=== PATIENT | female | born 1930 | race Caucasian/White ===

== ENCOUNTER 2017-01-03 20:12 | Inpatient (IN) | payer OTHER ==
[2017-01-03] MEDS ORDERED: DUONEB (A & A) INH ONE ×3 (20:48→22:18)
--- NOTE | 2017-01-03 20:49 | PROVIDER DOCUMENTATION ---
HPI-Respiratory General - General Source: patient, family - History of Present Illness-Resp Quality of Pain: reports: none Severity in ED: reports: severe Onset/Duration: reports: 3 days ago Timing: reports: still present Cough Quality/Degree: reports: severe, productive cough Episode Frequency: occasional episodes Associated Symptoms: reports: cough, fever/chills, lightheadedness, shortness of breath, short of breath, wheezing. denies: chest pain/soreness, dizziness, earache, facial pain, flu-like symptoms, headache, heart racing, hurts to breathe, hyperventilating, muscle/bodyaches, nasal congestion, sinus pain, sore throat, sweaty <Chucho Ko - Last Filed: 01/03/17 21:29> <Filomena Chung - Last Filed: 01/03/17 22:33> - General Chief Complaint: General Adult Stated Complaint: GENERAL, PASSING OUT Time Seen by Provider: 01/03/17 20:39 Allergies/Adverse Reactions: Patient Allergies Allergy/AdvReac Type Severity Reaction Status Date / Time Penicillins Allergy Mild RASH Verified 01/03/17 20:56 Home Medications: Home Medication List Medication Instructions Recorded Confirmed Last Taken Type Aspirin 81 mg PO DAILY 09/20/12 01/03/17 01/03/17 History Calcium Carb/Vit D3/Minerals 1 each PO DAILY 09/20/12 01/03/17 01/03/17 History [Calcium 600+Minerals Tablet] Furosemide 40 mg PO DAILY 09/20/12 01/03/17 01/03/17 History Levothyroxine Sodium [Levothroid] 50 mcg PO DAILY 09/20/12 01/03/17 01/03/17 History Losartan [Cozaar] 50 mg PO BID 09/20/12 01/03/17 01/03/17 History Multivitamin W/Iron, Minerals 1 each PO DAILY 09/20/12 01/03/17 01/03/17 History [Complete Multivitamin] SIMVAstatin [Zocor] 40 mg PO DAILY 09/20/12 01/03/17 01/03/17 History Docusate Sodium 100 mg PO QHS 06/04/13 01/03/17 01/02/17 History Cetirizine HCl [Allergy Relief] 10 mg PO DAILY PRN 08/14/14 01/03/17 01/03/17 History Warfarin Sodium [Coumadin] 2.5 mg PO EVERY OTHER DAY 10/24/14 01/03/17 01/02/17 History Warfarin [Coumadin] 5 mg PO EVERY OTHER DAY 10/24/14 01/03/17 12/31/16 History Albuterol 2.5MG/Ipratrop 0.5MG 3 ml INH BID 01/03/17 01/03/17 01/03/17 History [Duoneb] Budesonide/Formoterol Fumarate 2 puff IH BID 01/03/17 01/03/17 01/03/17 History [Symbicort 160-4.5 Mcg Inhaler] Citalopram [Celexa] 20 mg PO DAILY 01/03/17 01/03/17 01/03/17 History Donepezil [Aricept] 10 mg PO DAILY 01/03/17 01/03/17 01/03/17 History Ferrous Sulfate [Iron] 65 mg PO DAILY 01/03/17 01/03/17 01/03/17 History Memantine HCl [Namenda Xr] 28 mg PO DAILY 01/03/17 01/03/17 01/03/17 History Montelukast Sodium [Singulair] 10 mg PO DAILY 01/03/17 01/03/17 01/03/17 History Quetiapine Fumarate [Seroquel] 25 mg PO HS 01/03/17 01/03/17 01/02/17 History Spironolactone [Aldactone] 25 mg PO BID 01/03/17 01/03/17 01/03/17 History Temazepam [Restoril] 15 mg PO QHS 01/03/17 01/03/17 01/02/17 History - History of Present Illness-Resp Nature of Presenting Problem: Pt is a 86 yof who presents to ER with CC of sob and respiratory distress. Pt's family reports that pt has hx of pna x3 years ago. Pt presents today with worsening sob since Tuesday, since being started on levaquin. Pt has developed cough, wheeze, fever (101). On exam, pt has poor inspiratory breathing patterns but has no pitting edema. Pt has hx of CHF. (Chucho Ko) Review of Systems - Adult - REVIEW OF SYSTEMS - ADULT Constitutional: reports: fever, fatique. denies: chills, night sweats Eyes: reports: no symptoms reported Ears, Nose, Mouth & Throat: reports: no symptoms reported Cardiovascular: denies: chest pain, edema, heart murmur, irregular heart rate, orthopnea, palpitations, poor circulation, PND, syncope Respiratory: reports: chronic cough, cough, dyspnea on exertion, excessive sputum production, shortness of breath, wheezing. denies: hemoptysis, pleurisy Gastrointestinal: reports: no symptoms reported Genitourinary: reports: no symptoms reported Musculoskeletal: reports: frequent leg cramps. denies: bone pain, back pain, joint pain, joint swelling, muscle aches, muscle weakness, neck pain Integumentary: denies: hives, hair loss, itching, mole changes, nail changes, rash, skin sores/ulcer, skin thickening Neurological: reports: no symptoms reported Psychiatric: reports: no symptoms reported Endocrine: reports: no symptoms reported Hematologic/Lymphatic: reports: no symptoms reported Allergic/Immunologic: reports: no symptoms reported All Other Systems: Reviewed and Negative <Chucho Ko - Last Filed: 01/03/17 21:29> Past History - Adult - PAST MEDICAL HISTORY-ADULT Review of Records: reports: Nursing Assessment Review, Medications Reviewed Cardiovascular: reports: A-Fib, CAD (PVD), CHF, HTN, hyperlipidemia Respiratory: reports: asthma, COPD (3L of oxygen at home), pneumonia Gastrointestinal: reports: GERD, other (constipation) Endocrine/Immune: reports: thyroid disorder (hypo), other (peripheral vascular disease) - PRIOR SURGERIES/PROCEDURES Surgical/Procedure History: reports: appendectomy, cardiac stent, pacemaker, hysterectomy, other (right leg graft; ablation; balloon angioplasty) - PRIOR HOSPITALIZATIONS Prior Hospitalizations: reports: for similar symptoms - IMMUNIZATION STATUS Childhood Immunizations: See Nurse Assessment Flu Vaccine: See Nurse Assessment <Chucho Ko - Last Filed: 01/03/17 21:29> Physical Exam-General - PHYSICAL EXAM-ADULT Initial Vital Signs Reviewed: Yes - CONSTITUTIONAL General Appearance: appears well, alert, moderate distress, lethargic, slow to respond. negative: no apparent distress, mild distress, severe distress, cachetic, obese, thin, anxious, obtunded, combative - RESPIRATORY Respiratory: chest non-tender, respiratory distress, decreased breath sounds, accessory muscle use, wheezing (inspiratory). negative: lungs clear, normal breath sounds - CARDIOVASCULAR Cardiovascular: normal peripheral pulses, regular rate, rhythm. negative: bradycardia, tachycardia, irregularly irregular - MUSCULOSKELETAL Extremity: normal range of motion, non-tender, normal gait, tenderness. negative: deformity, erythema, inflammation, pulse deficit, pedal edema, slow capillary refill, swelling - SKIN Integumentary: normal color, normal turgor, warm/dry, tenderness, warm. negative: diaphoresis, laceration(s), swelling - NEUROLOGIC Neurologic: grossly normal, no motor/sensory deficits. negative: facial droop, focal weakness, motor weakness, sensory deficit - PSYCHIATRIC Psych/Mental Status: normal thought content, normal thought process, oriented x 3, depressed affect <Chucho Ko - Last Filed: 01/03/17 21:29> Progress - XRAY 1 XRAY: Bilateral XRAY Study: Chest Impression: See EMR Report XRAY Interpretation: COPD changes <Chucho Ko - Last Filed: 01/03/17 21:29> - CONSULTS/PCP/HOSPITALIST Notification #1 *Consult/PCP/Hospitalist*: Dr. Tai, hospitalist Time Discussed: 22:32 Reason/Comments: COPD exacerbatopm Consult Disposition: Admit <Filomena Chung - Last Filed: 01/03/17 22:33> - PLAN OF CARE/RESULTS Progress/Plan/Lab Results: Vital Signs Temp Pulse Resp BP Pulse Ox 01/03/17 21:32 88 25 H 99 01/03/17 20:15 97.3 F L 73 20 142/42 89 L Penicillins Allergy (Mild, Verified 01/03/17 20:56) RASH Aspirin 81 mg PO DAILY 09/20/12 Calcium Carb/Vit D3/Minerals [Calcium 600+Minerals Tablet] 1 each PO DAILY 09/20 Furosemide 40 mg PO DAILY 09/20/12 Levothyroxine Sodium [Levothroid] 50 mcg PO DAILY 09/20/12 Losartan [Cozaar] 50 mg PO BID 09/20/12 Multivitamin W/Iron, Minerals [Complete Multivitamin] 1 each PO DAILY 09/20/12 SIMVAstatin [Zocor] 40 mg PO DAILY 09/20/12 Docusate Sodium 100 mg PO QHS 06/04/13 Cetirizine HCl [Allergy Relief] 10 mg PO DAILY PRN 08/14/14 Warfarin Sodium [Coumadin] 2.5 mg PO EVERY OTHER DAY 10/24/14 Warfarin [Coumadin] 5 mg PO EVERY OTHER DAY 10/24/14 Albuterol 2.5MG/Ipratrop 0.5MG [Duoneb] 3 ml INH BID 01/03/17 Budesonide/Formoterol Fumarate [Symbicort 160-4.5 Mcg Inhaler] 2 puff IH BID Citalopram [Celexa] 20 mg PO DAILY 01/03/17 Donepezil [Aricept] 10 mg PO DAILY 01/03/17 Ferrous Sulfate [Iron] 65 mg PO DAILY 01/03/17 Memantine HCl [Namenda Xr] 28 mg PO DAILY 01/03/17 Montelukast Sodium [Singulair] 10 mg PO DAILY 01/03/17 Quetiapine Fumarate [Seroquel] 25 mg PO HS 01/03/17 Spironolactone [Aldactone] 25 mg PO BID 01/03/17 Temazepam [Restoril] 15 mg PO QHS 01/03/17 Laboratory 01/03/17 01/03/17 01/03/17 21:40 21:40 21:40 WBC RBC Hgb Hct MCV MCH MCHC RDW Std Deviation Plt Count MPV Immature Gran % (Auto) Neut % (Auto) Lymph % (Auto) Fajardo % (Auto) Eos % (Auto) Baso % (Auto) Immature Gran # (Auto) Neut # (Auto) Lymph # (Auto) F[place]ardo # (Auto) Eos # (Auto) Baso # (Auto) D-Dimer 0.44 Specimen Type Sample Site pH pCO2 pO2 HCO3 Base Excess Oxyhemoglobin ABG O2 Sat (Calculated) ABG O2 Saturation ABG Carboxyhemoglobin ABG Methemoglobin Donte Test A-a O2 Difference Total Hemoglobin Lactate Liter Flow Blood Gas Modality FiO2 % Sodium 133 L Potassium 4.5 Chloride 92 L Carbon Dioxide 27 Anion Gap 14 BUN 16 Creatinine 0.7 Estimated GFR/1.73 m2 > 60 BUN/Creatinine Ratio 23 Glucose 156 H Calculated Osmolality 271 Calcium 9.2 Total Bilirubin 0.23 AST 38 H ALT 28 Alkaline Phosphatase 50 Gur-C-Lzeymojwhzk Pept 2881 H Total Protein 6.6 Albumin 3.8 Globulin 2.8 Albumin/Globulin Ratio 1.4 01/03/17 01/03/17 21:40 20:47 WBC 9.32 RBC 3.80 L Hgb 11.3 L Hct 34.8 L MCV 91.6 MCH 29.7 MCHC 32.5 L RDW Std Deviation 12.9 Plt Count 166 MPV 10.3 Immature Gran % (Auto) 0.4 Neut % (Auto) 90.3 H Lymph % (Auto) 4.1 L Fajardo % (Auto) 5.0 Eos % (Auto) 0.1 Baso % (Auto) 0.1 Immature Gran # (Auto) 0.04 Neut # (Auto) 8.41 H Lymph # (Auto) 0.38 L Fajardo # (Auto) 0.47 Eos # (Auto) 0.01 Baso # (Auto) 0.01 D-Dimer Specimen Type ARTERIAL Sample Site R RADIAL pH 7.32 L pCO2 60 H* pO2 176 H HCO3 27.7 H Base Excess 3.5 H Oxyhemoglobin 96.8 ABG O2 Sat (Calculated) 15.6 ABG O2 Saturation 99.0 ABG Carboxyhemoglobin 0.90 ABG Methemoglobin 1.2 Donte Test YES A-a O2 Difference 6.0 Total Hemoglobin 11.2 L Lactate 1.00 Liter Flow 4.0 Blood Gas Modality CANNULA FiO2 % 36.0 Sodium Potassium Chloride Carbon Dioxide Anion Gap BUN Creatinine Estimated GFR/1.73 m2 BUN/Creatinine Ratio Glucose Calculated Osmolality Calcium Total Bilirubin AST ALT Alkaline Phosphatase Bjw-D-Naxjgswbbqu Pept Total Protein Albumin Globulin Albumin/Globulin Ratio Orders Category Date Time Status Saline Loc NOW Care 01/03/17 20:47 Active CHEST-PORTABLE [RAD] Stat Exams 01/03/17 20:48 Taken ABG [RESP] Routine Lab 01/03/17 20:47 Completed BNP [PRO B-NATRIURETIC PEPTIDE] Stat Lab 01/03/17 21:40 Completed CBC WITH ELECTRONIC DIFF [HEME] Stat Lab 01/03/17 21:40 Completed COMPREHENSIVE METABOLIC PANEL [CHEM] Stat Lab 01/03/17 21:40 Completed D-DIMER [CHEM] Stat Lab 01/03/17 21:40 Completed Albuterol 2.5MG/Ipratrop 0.5MG [Duoneb (A & A)] Med 01/03/17 20:48 Discontinued 3 ml INH NOW ONE Albuterol 2.5MG/Ipratrop 0.5MG [Duoneb (A & A)] Med 01/03/17 20:48 Discontinued 3 ml INH NOW ONE Albuterol 2.5MG/Ipratrop 0.5MG [Duoneb (A & A)] Med 01/03/17 22:18 Discontinued 3 ml INH NOW ONE Methylprednisolone Sod Succ [Solu-Medrol] Med 01/03/17 21:22 Discontinued 80 mg IV NOW ONE Aerosol Treatments Routine Ot 01/03/17 20:48 Completed Aerosol Treatments Routine Ot 01/03/17 20:48 Completed Aerosol Treatments Routine Ot 01/03/17 22:18 Active Aerosol Treatments Stat Ot 01/03/17 20:48 Completed Aerosol Treatments Stat Ot 01/03/17 20:48 Completed Aerosol Treatments Stat Ot 01/03/17 22:18 Active (Filomena Chung) Departure <Chucho Ko - Last Filed: 01/03/17 21:29> - Departure Time of Disposition Order: 22:29 Certified Medical Emergency: Emergent <Filomena Chung - Last Filed: 01/03/17 22:33> - Departure DIAGNOSIS: COPD exacerbation Disposition: ADMITTED INPATIENT 09 Condition: Stable Referrals: Nick Koroma MD [Primary Care Provider] - Attestation - Scribe Verification/Attestation Scribe:: Chucho Ko Acting as Scribe for:: Filomena Chung Scribe documention review:: This chart was documented by a scribe and accurately reflects the service the provider performed and the decisions made by the provider. <Chucho Ko - Last Filed: 01/03/17 21:29> - Physician/ CHET Attestation Patient care was provided by Advanced Practice Provider:: Yes Advanced Practice Provider:: Filomena Chung Advanced Practice Provider documentation review:: The Mid-level provider documentation, treatment plan and medical decision making was reviewed by the physician who agrees with all treatment and medical decision making by the MLP. <Filomena Chung - Last Filed: 01/03/17 22:33> Physician Attestation
[2017-01-03 21:14] LABS: ALLEN TEST YES; BE 3.5 mmoll (-3.0-3.0); BLOOD TYPE ARTERIAL; DRAW SITE R RADIAL; METHB 1.2 % (0.0-1.5); O2(CT) 15.6 mL/dL (15.0-23.0); PO2(98.6) 176 mmHg (60-100); SAMPLE BLOOD; THB 11.2 g/dL (11.5-17.4); pH(98.6) 7.32 (7.35-7.45)
[2017-01-03 21:15] LABS: MODALITY CANNULA
[2017-01-03 21:16] LABS: PCO2(98.6) 60 mmHg (35-45)
[2017-01-03] MEDS ORDERED: SOLU-MEDROL IV ONE (21:22)
[2017-01-03 21:54] LABS: BASO% 0.1 % (0.0-0.8); EOS# 0.01 X1000 (0.0-0.7); EOS% 0.1 % (0.0-10.0); HEMATOCRIT 34.8 % (37.0-47.0); HEMOGLOBIN 11.3 g/dL (12.0-16.0); IMM GRAN# 0.04 X1000 (0.0-0.04); IMM GRAN% 0.4 % (0.0-0.5); LYMPH# 0.38 X1000 (1.2-3.4); LYMPH% 4.1 % (20.5-51.1); MANUAL DIFF NEEDED? NO; MCH 29.7 PG (27-31); MCHC 32.5 g/dL (33-37); MCV 91.6 FL (81-99); MONO# 0.47 X1000 (0.11-0.59); MPV 10.3 FL (7.4-10.4); NEUT% 90.3 % (42.2-75.2); PLT 166 X1000 (130-400)
[2017-01-03 22:23] LABS: AGAP 14; ALBUMIN 3.8 g/dL (3.5-5.0); ALKALINE PHOSPHATASE 50 U/L (32-104); BUN 16 mg/dL (8-22); CALCIUM 9.2 mg/dL (8.8-10.2); CHLORIDE 92 mmol/L (98-107); COSMO 271; GOT 38 U/L (10-30); GPT 28 U/L (10-36); POTASSIUM 4.5 mmol/L (3.5-5.1); SODIUM 133 mmol/L (136-145); TCO2 27 mmol/L (25-35); TOTAL BILIRUBIN 0.23 mg/dL (0.20-1.00); TOTAL PROTEIN 6.6 g/dL (6.3-8.3)
[2017-01-03 23:36] LABS: INR 2.12
[2017-01-03 23:39] LABS: PROTIME 22.6 Seconds (9.2-11.7)
[2017-01-04] MEDS: SOLU-MEDROL IV SCH ×4 (03:26→22:15)
[2017-01-04] MEDS: LEVAQUIN 750 MG/D5W 150 ML IV SCH (03:27)
--- NOTE | 2017-01-04 05:05 | HISTORY AND PHYSICAL ---
CHIEF COMPLAINT: Shortness of breath. HISTORY OF PRESENTING ILLNESS: An 86-year-old female with a history of COPD, CHF, and hypertension on home oxygen. Had presented to the emergency department with a four-day history of worsening shortness of breath. Family members state that they tried to raise the oxygen. However, she still was getting more short of breath and subsequently, the patient was brought to the emergency department. In the ER, she was evaluated. She was somewhat hypoxic and due to her presenting symptoms, it was thought that she would need hospitalization for further management. At the time of my examination, she had denied any headache, fever, chills, chest pain, hemoptysis, melena, but complained of shortness of breath. PAST MEDICAL HISTORY: Includes COPD, CHF, hypertension, hyperlipidemia, atrial fibrillation. PAST SURGICAL HISTORY: Pacemaker, femorofemoral bypass, hysterectomy. ALLERGIES: Penicillin. CURRENT MEDICATIONS: As listed in the MAR. SOCIAL HISTORY: She is a former smoker. No history of alcohol or illicit drug use. FAMILY HISTORY: Positive for coronary artery disease in father. REVIEW OF SYSTEMS: Twelve point review of systems listed as in the HPI. Other systems negative. PHYSICAL EXAMINATION: GENERAL: Cooperative, friendly female. She is in some mild to moderate respiratory distress. VITAL SIGNS: Temperature 97.3 degrees, pulse 73, respirations 20, blood pressure 142/42, is saturating 89% on 4 L. HEENT: Atraumatic, normocephalic. Extraocular movements intact. PERRLA. NECK: No masses. CHEST: Some rhonchi. CARDIOVASCULAR: Regular rate and rhythm. ABDOMEN: Soft. Positive bowel sounds. EXTREMITIES: There is +1 edema. NEUROLOGIC: She is awake, alert, oriented x3. : No bladder distention. SKIN: Warm. LABORATORIES AND STUDIES: ABG shows a pH of 7.32 and pCO2 of 60. WBCs 9.32, hemoglobin 11.3, hematocrit 34.8, platelets are 166,000. Sodium 133, potassium 4.5, chloride 92, CO2 is 27, BUN is 16, creatinine 0.7, glucose is 156. ProBNP is 2881. ASSESSMENT: An 86-year-old, elderly female with a history of chronic obstructive pulmonary disease, congestive heart failure, and hypertension, on home oxygen. Had presented to the emergency department with worsening shortness of breath. She was given DuoNebs and intravenous Solu-Medrol, and she had some mild improvement. However, the patient will need hospitalization for further management. 1. Acute chronic obstructive pulmonary disease exacerbation. 2. Chronic congestive heart failure, unspecified. 3. Hypertension. 4. Atrial fibrillation. PLAN: 1. We will admit patient to the medical floor with telemetry. 2. We will continue with DuoNebs and IV Solu-Medrol. 3. If she has worsening symptoms, we may need to put patient on BiPAP. 4. Continue with gentle diuresis. 5. Monitor blood pressure closely. 6. We will restart her anticoagulation for her atrial fibrillation. 7. Put the patient on DVT prophylaxis with SCD as the fact that she is already on Coumadin. 8. We will continue to follow and reassess.
[2017-01-04 06:24] LABS: AGAP 12; BUN 17 mg/dL (8-22); CALCIUM 9.1 mg/dL (8.8-10.2); CHLORIDE 93 mmol/L (98-107); COSMO 276; POTASSIUM 4.5 mmol/L (3.5-5.1); SODIUM 134 mmol/L (136-145); TCO2 29 mmol/L (25-35)
[2017-01-04 06:53] LABS: BASO% 0.1 % (0.0-0.8); HEMATOCRIT 33.4 % (37.0-47.0); HEMOGLOBIN 10.7 g/dL (12.0-16.0); LYMPH# 0.25 X1000 (1.2-3.4); LYMPH% 3.3 % (20.5-51.1); MANUAL DIFF NEEDED? YES; MCH 29.5 PG (27-31); MONO# 0.19 X1000 (0.11-0.59); MONO% 2.5 % (1.7-9.3); MPV 10.6 FL (7.4-10.4); NEUT% 94.1 % (42.2-75.2); PLT 161 X1000 (130-400); RBC 3.63 XMIL (4.2-5.4)
[2017-01-04] MEDS: SYNTHROID PO SCH (07:55)
--- NOTE | 2017-01-04 07:59 | Diag Imaging Result Document ---
PROCEDURE NAME: CHEST-PORTABLE - 01/03/2017 PORTABLE CHEST X-RAY: COMPARISON: 04/12/2016. FINDINGS: Stable dual-chamber pacemaker. Stable streaky scarring in the left lung base. No new or focal infiltrates. There is mild pulmonary vascular congestion. Heart size remains normal. IMPRESSION: No acute disease or significant change from prior.
[2017-01-04 08:17] LABS: BANDS 4 % (0-1); LYMPHS 4 % (21-51); MONO 6 % (1-9)
[2017-01-04] MEDS: FLINTSTONES COMPLETE PO SCH (08:34)
[2017-01-04] MEDS: COZAAR PO SCH ×2 (08:35→20:58)
[2017-01-04] MEDS: ASPIRIN PO SCH (08:35)
[2017-01-04] MEDS: ARICEPT PO SCH (08:35)
[2017-01-04] MEDS: ALDACTONE PO SCH ×2 (08:35→20:58)
[2017-01-04] MEDS: FERROUS SULFATE PO SCH (08:35)
[2017-01-04] MEDS: LASIX PO SCH (08:36)
[2017-01-04] MEDS: ZOCOR PO SCH (08:36)
[2017-01-04] MEDS: NAMENDA XR PO SCH (08:36)
[2017-01-04] MEDS: CALTRATE 600 + D PO SCH (08:36)
[2017-01-04] MEDS: CELEXA PO SCH (08:36)
[2017-01-04] MEDS: SINGULAIR PO SCH (08:38)
[2017-01-04] MEDS ORDERED: MINERALS PO SCH (09:00)
[2017-01-04] MEDS ORDERED: FERROUS SULFATE 65 MG PO SCH (09:00)
[2017-01-04] MEDS ORDERED: VIT D3 PO SCH (09:00)
[2017-01-04] MEDS ORDERED: CENTRUM CHEWABLE PO SCH (09:00)
[2017-01-04] MEDS ORDERED: CALCIUM CARB PO SCH (09:00)
--- NOTE | 2017-01-04 10:20 | PROGRESS NOTE ---
DATE: 01/04/2017 SUBJECTIVE: Ms. Thompson was admitted yesterday per Dr. Twan Tai. This is an 86-year-old with history of COPD, congestive heart failure, hypertension, home oxygen, who presented to the emergency room with a 4-day history of worsening shortness of breath. Family member states she has tried to raise the oxygen, however still is getting more short of breath. Subsequently the patient was brought to the emergency room; here she was evaluated, found to have hypoxia and noted very weak and lethargic and wearing out from work of breathing. PAST MEDICAL HISTORY: COPD, congestive heart failure, hypertension, hyperlipidemia, atrial fibrillation. SURGICAL HISTORY: Had a pacemaker femoral-femoral bypass and hysterectomy, so was admitted with acute on chronic obstructive pulmonary disease or exacerbation of COPD. She has a history of chronic congestive heart failure, hypertension atrial fib. IMAGING: Looking back at her previous data, she had an echocardiogram on 08/14/2014 and another 1 repeated on 04/12/2016. Echocardiogram shows normal left ventricular systolic function, mild to moderate mitral regurgitation, and diastolic dysfunction is probably present. Pulmonary pressure estimated 44/12. Sclerosis of the aortic valve without stenosis. Presence of a pacemaker enlarged, both atria enlarged, [id number] exam today. She feels more comfortable on BiPAP. OBJECTIVE: Vital Signs: Afebrile with temp 97.9 degrees, pulse 70, respirations 18, blood pressure 150/65. Eyes: Pupils are equal, round. Lungs: Lungs are clear anterior lateral and slightly prolonged expiratory phase, but the patient and family state wheezing is markedly diminished. Height/weight: Height is 5 feet 1 inch, weight 155 pounds. LABS: Review of her labs and also report of her urine output that I do not have an accurate recording of. However, her lab reveals white count 7480, hematocrit 33, platelet count 161,000. Electrolytes: Sodium 134, potassium 4.5, chloride 93, bicarbonate 29, BUN 17, creatinine 0.8, calcium 9.1. ProBNP was 2881. ASSESSMENT AND PLAN: 1. Chronic obstructive pulmonary disease exacerbation. Bronchospasm seems to be improving. Continue bronchodilators. Continue Solu-Medrol or methylprednisone 80 mg IV q. 6 hours, and she is on Levaquin 750 mg q. 24 hours for bronchitic organisms. 2. She has history of atrial fibrillation and is on Coumadin. Her pro time we will continue to follow that is 22, so this really perfect. 3. Hypertension. Will follow. 4. She is on anticoagulant for deep vein thrombosis prophylaxis. Review of her lab and hematology and orders: I do not see any change. Continue present regimen. I think she would probably benefit from Advair as well or steroid inhaler.
[2017-01-04] MEDS: COLACE PO SCH (20:58)
[2017-01-04] MEDS: SEROQUEL PO SCH (20:58)
[2017-01-04] MEDS ORDERED: RESTORIL PO SCH (21:00)
[2017-01-05] MEDS: LEVAQUIN 750 MG/D5W 150 ML IV SCH (05:12)
[2017-01-05] MEDS: SOLU-MEDROL IV SCH ×5 (05:13→21:24)
[2017-01-05] MEDS: ADVAIR 250/50 DISKUS INH SCH ×2 (07:32→20:44)
[2017-01-05] MEDS: ALDACTONE PO SCH (11:20)
[2017-01-05] MEDS: LASIX PO SCH (11:20)
[2017-01-05] MEDS: SINGULAIR PO SCH (11:20)
[2017-01-05] MEDS: ARICEPT PO SCH (11:20)
[2017-01-05] MEDS: ASPIRIN PO SCH (11:20)
[2017-01-05] MEDS: CALTRATE 600 + D PO SCH (11:21)
[2017-01-05] MEDS: FERROUS SULFATE PO SCH (11:21)
[2017-01-05] MEDS: ZOCOR PO SCH (11:21)
[2017-01-05] MEDS: NAMENDA XR PO SCH (11:21)
[2017-01-05] MEDS: CELEXA PO SCH (11:21)
[2017-01-05] MEDS: FLINTSTONES COMPLETE PO SCH (11:21)
[2017-01-05] MEDS: COZAAR PO SCH ×2 (11:21→21:29)
[2017-01-05] MEDS: SYNTHROID PO SCH (11:28)
--- NOTE | 2017-01-05 12:14 | PROGRESS NOTE ---
DATE: 01/05/2017 SUBJECTIVE: Ms. Thompson had a pretty rough night. She is on BiPAP. Feel like she is moving air a little better. Family was at the bedside. Concerned about her not eating much. Want to make sure she gets nasal cannula when she is eating. OBJECTIVE: Vital Signs: Temperature 98.4 degrees, afebrile, pulse 70, respirations 22, blood pressure 160/64. HEENT: Pupils are equal, round. Lungs: Clear in all lung lynch. Cardiovascular: Regular rhythm and rate without murmur or S3. Abdomen: Soft. Skin: Warm and dry. Good urine output by report. LABORATORY DATA: From the reviewed. Hematocrit stable at 33. Chemistries from the reviewed and looked good. Creatinine was 0.8. ASSESSMENT AND PLAN: 1. Chronic obstructive pulmonary disease exacerbation. Bronchospasm is improving, still requiring BiPAP, Solu-Medrol 80 mg IV q.6h, continue that. Levaquin 750 mg IV q.24 hours. 2. History of atrial fibrillation. She is on Coumadin. Continue to follow prothrombin time which appears to be therapeutic. 3. Hypertension. Blood pressure appears well controlled. 4. She is already on Coumadin treatment. Prothrombin time was 22 on the . I will recheck a prothrombin time, electrolytes and CBC in the morning, also repeat a chest x-ray. 5. On review of orders, I do not see anything different at this point. We will continue Solu- Medrol at present rate.
[2017-01-05] MEDS: NS 1,000 ML IV SCH (14:54)
[2017-01-05] MEDS: DUONEB (A & A) INH SCH ×3 (15:08→22:10)
[2017-01-05 16:33] LABS: ALLEN TEST YES; BE 12.4 mmoll (-3.0-3.0); BLOOD TYPE ARTERIAL; DRAW SITE R RADIAL; METHB 1.4 % (0.0-1.5); O2(CT) 15.8 mL/dL (15.0-23.0); PO2(98.6) 105 mmHg (60-100); SAMPLE BLOOD; SAO2 97.8 % (95.0-100.0); THB 11.7 g/dL (11.5-17.4); pH(98.6) 7.26 (7.35-7.45)
[2017-01-05 16:39] LABS: MODALITY BI PAP
[2017-01-05] MEDS ORDERED: COUMADIN PO SCH (21:00)
--- NOTE | 2017-01-05 21:13 | CONSULTATION ---
DATE OF CONSULTATION: 01/05/2017 REQUESTING PHYSICIAN: Donte Teixeira MD REASON FOR CONSULTATION: Respiratory failure. HISTORY OF PRESENT ILLNESS: Ms. Thompson is an 86-year-old, white female with a greater than 30 pack year history for tobacco (nonsmoker for many years) with COPD. The patient has been on oxygen therapy for approximately 10 years. The patient is cared for by her daughter. The patient has an antibiotic which can be used on a p.r.n. basis. The patient developed increased cough with increased sputum production and fever and was initiated on Levaquin. The following day, she felt worse and presented to the emergency room. Arterial blood gas revealed acute on chronic hypercapnic respiratory failure. Chest x-ray revealed no evidence of active infiltrates. The patient was admitted to the hospital for additional evaluation and treatment. The patient had periods of lethargy today. An arterial blood gas was performed and her pCO2 was greater than 60. PAST MEDICAL HISTORY: 1. Chronic hypoxemic and hypercapnic respiratory failure. 2. COPD with prior tobacco use. 3. Dementia. 4. Atrial fibrillation. 5. Peripheral vascular disease, status post bifemoral bypass. 6. Status post pacemaker placement. 7. Dyslipidemia. 8. Hypertension. 9. History of CHF. SOCIAL HISTORY: She is cared for by her family members. Prior tobacco use. No alcohol use. FAMILY HISTORY: Positive for coronary artery disease. REVIEW OF SYSTEMS: Limited. The patient is on BiPAP. PHYSICAL EXAMINATION: General: Reveals a frail, chronically ill-appearing, white female, on BiPAP. She opens her eyes to her name. Vital signs: Blood pressure 158/56, heart rate 75, respiration rate 18, oxygen saturation 100%. HEENT: Pupils are equal and reactive. Oropharynx evaluation is limited with BiPAP in place. Neck: Supple. Chest: Reveals markedly diminished breath sounds bilaterally. Cardiac: Distant heart sounds. Normal S1. Irregular rhythm. Normal S2. Abdomen: Soft. Extremities: Without edema. LABORATORIES: Chest x-ray on admission reveals scar in left base. Pacemaker in place. Mild vascular congestion. IMPRESSION: An 86-year-old with severe end-stage chronic obstructive pulmonary disease, who presents with acute on chronic hypercapnic respiratory failure and acute on chronic hypoxemic respiratory failure. Initial chest x-ray revealed no evidence of active infiltrates. She has had further decompensation after admission to the hospital. RECOMMENDATIONS: 1. Continue BiPAP as you are doing. We will leave BiPAP on for approximately 20-24 hours to see if she has improvement following a diaphragmatic rest. 2. Repeat chest x-ray to ensure she is not developing infiltrates or pulmonary edema. 3. Nebulizers q.4 hours as you are doing. 4. Agree with steroids as you are doing. 5. Agree with current antibiotic regimen. 6. Discussed end of life issues with the family. Patient would not do well with cardiopulmonary resuscitation and advanced cardiac life support. She may be difficult to wean from mechanical ventilation. This was briefly discussed with the family and they will continue discussion with Dr. Teixeira.
[2017-01-05] MEDS: SEROQUEL PO SCH (21:29)
[2017-01-05] MEDS: COLACE PO SCH (21:31)
--- NOTE | 2017-01-06 02:37 | PROGRESS NOTE ---
DATE: 01/05/2017 ADDENDUM: The nurse called me and said the family was upset, concerned she was not getting fluids, she is not waking up, she is not eating, feels like more should be done. Concerned she is not getting her nebulized treatments. I think the main thing is that she is not eating and she is very lethargic. I reviewed with the patient her current medication list and I explained that we probably do not need to add a medicine to help this, but maybe think about holding some medicine. She takes Seroquel 25 mg at bedtime. She takes trazodone. She is on Aricept 10 mg a day. Looking through her records, she has 2 echoes, both of which show good left ventricular function. She had a diagnosis on there of congestive heart failure. I am assuming maybe that was chronic venous stasis or diastolic dysfunction. I am not really sure why she is on spironolactone. I am going to stop that. I am going to give her some normal saline at 75 mL an hour. Looking through the rest of her medication list, she is on Restoril 15 mg at bedtime. We will stop that. We will check some blood gases. Chest x-ray showed no infiltrate. I do not see any evidence of infection. I will keep her on Levaquin for bronchitic organisms. I think I will leave her on her Seroquel. Stop the Restoril. Note that the ProTime we will check again in the morning. She is on Coumadin for atrial fibrillation. She is also on amiodarone and apparently has been in sinus rhythm. I am going to ask Pulmonary to help with management.
[2017-01-06] MEDS: DUONEB (A & A) INH SCH ×6 (03:47→22:59)
[2017-01-06] MEDS: SOLU-MEDROL IV SCH ×4 (04:16→21:49)
[2017-01-06] MEDS: NS 1,000 ML IV SCH (04:16)
[2017-01-06] MEDS: LEVAQUIN 750 MG/D5W 150 ML IV SCH (04:16)
[2017-01-06 04:32] LABS: ALLEN TEST YES; BE 10.5 mmoll (-3.0-3.0); BLOOD TYPE ARTERIAL; DRAW SITE R RADIAL; METHB 1.4 % (0.0-1.5); O2(CT) 15.8 mL/dL (15.0-23.0); PO2(98.6) 140 mmHg (60-100); SAMPLE BLOOD; SAO2 98.7 % (95.0-100.0); THB 11.5 g/dL (11.5-17.4)
[2017-01-06 04:47] LABS: PCO2(98.6) 114 mmHg (35-45); pH(98.6) 7.18 (7.35-7.45)
[2017-01-06 04:48] LABS: MODALITY BI PAP
[2017-01-06] MEDS ORDERED: AMIDATE ONE (05:35)
[2017-01-06] MEDS ORDERED: QUELICIN ONE (05:36)
[2017-01-06] MEDS ORDERED: DIPRIVAN 1% 100 ML ONE (05:47)
--- NOTE | 2017-01-06 06:29 | Diag Imaging Result Document ---
PROCEDURE NAME: CHEST-PORTABLE - 01/06/2017 PORTABLE CHEST: COMPARISON: Compared to 01/03/2017. FINDINGS: Interval placement of an endotracheal tube. The tip is located 2 to 3 cm above the yessenia. The patient has a left-sided pacemaker. The lungs are well expanded. The heart is not enlarged. No consolidation. No pleural effusions. IMPRESSION: 1. Endotracheal tube in good position. 2. No pneumonia.
--- NOTE | 2017-01-06 07:20 | OPERATIVE NOTE ---
PROCEDURE DATE: 01/06/2017 PREOPERATIVE DIAGNOSES: 1. Chronic obstructive pulmonary disease exacerbation. 2. Respiratory distress. 3. Phlebosclerosis. POSTOPERATIVE DIAGNOSES: 1. Chronic obstructive pulmonary disease exacerbation. 2. Respiratory distress. 3. Phlebosclerosis. PROCEDURE: Ultrasound-guided right femoral vein triple lumen catheter placement. SURGEON: Quinn Contreras MD. SONG LYRICIST: None. ANESTHESIA: Local administered by the surgeon. BRIEF HISTORY: The patient is an 86-year-old, female who was originally transferred to the ICU for COPD exacerbation. She had been intubated. Had been having a difficult time finding venous access to keep her sedated. I was asked to place a central line. Given her history of COPD, I elected to avoid the chest to avoid any kind of complications. The risks, benefits, and alternatives were discussed with her sisters. They voiced understanding and wished to proceed with the procedure. DESCRIPTION OF PROCEDURE: After informed consent was obtained, the patient remained in her ICU bed. The right groin was prepped and draped in a sterile fashion. Ultrasound was used to identify the right femoral vein. Used local anesthetic to anesthetize the skin. I then, under ultrasound guidance, cannulated the right femoral vein and passed a wire easily. Using the Seldinger technique, I serially dilated up the tract and placed a central line. I was able to aspirate and flush blood in all ports, and secured it in place. A sterile dressing was applied. Patient tolerated the procedure well and remained in her ICU bed.
[2017-01-06] MEDS: ADVAIR 250/50 DISKUS INH SCH (07:27)
[2017-01-06 07:36] LABS: ALLEN TEST YES; BE 10.5 mmoll (-3.0-3.0); BLOOD TYPE ARTERIAL; DRAW SITE R RADIAL; METHB 1.4 % (0.0-1.5); O2(CT) 15.9 mL/dL (15.0-23.0); PO2(98.6) 273 mmHg (60-100); SAMPLE BLOOD; SAO2 98.7 % (95.0-100.0); SRATE 16 BPM; THB 11.2 g/dL (11.5-17.4); TVOL 500 mL; pH(98.6) 7.39 (7.35-7.45)
[2017-01-06 07:39] LABS: MODALITY VENTILATOR; PCO2(98.6) 62 mmHg (35-45)
[2017-01-06] MEDS ORDERED: SODIUM CHLORIDE 0.9% INJ PRN (07:43)
[2017-01-06 07:52] LABS: URINE CULTURE NEEDED? NO; URINE MICRO REVIEW NEEDED? NO; URINE SOURCE CATH
[2017-01-06 07:55] LABS: BILIRUBIN URINE NEGATIVE (NEGATIVE); BLOOD URINE SMALL (NEGATIVE); COLOR YELLOW; GLUCOSE URINE NEGATIVE (NEGATIVE); LEUKOCYTES URINE NEGATIVE (NEGATIVE); NITRITE URINE NEGATIVE (NEGATIVE); PROTEIN URINE 70 mg/dL (NEGATIVE); SP GRAVITY URINE 1.021; TURBIDITY URINE CLEAR (CLEAR); UROBILINOGEN URINE NORMAL (NORMAL)
[2017-01-06 07:57] LABS: UR EPITHELIAL CELLS <10 /HPF (<10); URINE BACTERIA NEGATIVE /HPF; URINE WBC <10 /HPF (<10)
[2017-01-06 08:08] LABS: BASO% 0.2 % (0.0-0.8); HEMATOCRIT 35.4 % (37.0-47.0); HEMOGLOBIN 10.7 g/dL (12.0-16.0); IMM GRAN# 0.13 X1000 (0.0-0.04); IMM GRAN% 1.4 % (0.0-0.5); LYMPH# 0.33 X1000 (1.2-3.4); LYMPH% 3.5 % (20.5-51.1); MANUAL DIFF NEEDED? YES; MCH 29.6 PG (27-31); MCHC 30.2 g/dL (33-37); MCV 97.8 FL (81-99); MONO# 0.65 X1000 (0.11-0.59); MONO% 6.8 % (1.7-9.3); MPV 10.3 FL (7.4-10.4); NEUT% 88.1 % (42.2-75.2); PLT 158 X1000 (130-400); RBC 3.62 XMIL (4.2-5.4)
[2017-01-06] MEDS: DIPRIVAN 1% 100 ML IV SCH ×5 (08:12→21:47)
--- NOTE | 2017-01-06 08:15 | PROGRESS NOTE ---
DATE: 01/06/2017 SUBJECTIVE: Ms. Thompson continued to struggle on BiPAP. CO2 went up above 100, and the family made the decision that they want her intubated. I think they want her a NO CODE LEVEL 2. No chest compressions but everything else done. She was intubated and moved to the unit to bed 4. Appears more comfortable. She is on Diprivan sedation. OBJECTIVE: Vital Signs: Afebrile, temperature 97.9 degrees, pulse 70, respirations 16, blood pressure 152/55. HEENT: Pupils are equal and round. CVP: Less than 6 cm. Lungs are clear in all lung lynch. Cardiovascular: Regular rhythm and rate without murmur or S3. Abdomen is soft. Skin is warm and dry. LABORATORY DATA: Lab reviewed from 01/04/2017. I think we will repeat some more labs this morning. No chest x-ray done this morning. ET tube in good position. No sign of pneumonia or infiltrate. ASSESSMENT AND PLAN: 1. An 86-year-old female, greater than 30 pack-year for tobacco, nonsmoker for years with chronic obstructive pulmonary disease. She has been on oxygen therapy for 10 years and cared for by her daughter. She has an antibiotic which she uses on a p.r.n. basis. She presented with increased cough and sputum production and was initiated on some Levaquin, and we put her on some BiPAP. 2. She has mjhar-kx-eeogvva hypercapnic respiratory failure. No evidence of infiltrate. The patient had been pretty lethargic. We have backed down on potential sedative medications. CO2 continued to rise and intubated now. She is on nebulizers. She is on steroids. Continue present regimen. I appreciate Dr. Henley's help. Try and extubate as able or wean as able. We will continue present regimen. Reviewed Orders. I do not see any change at this point. We will stop her p.o. medications and will change her to Lovenox, she is on Coumadin for chronic atrial fibrillation. 3. Chronic atrial fibrillation. 4. Hypothyroidism, appears to be euthyroid. 5. Underlying dementia. 6. She has chronic anemia. Normal MCV. ABGs from this morning: pH 7.39, PO2 273, pCO2 of 62, so a marked improvement. Continue present regimen. I do not see any change at this point. We will stop her p.o. medications.
[2017-01-06] MEDS: LOVENOX SUBQ SCH ×2 (08:16→20:21)
[2017-01-06 08:27] LABS: ALBUMIN 3.2 g/dL (3.5-5.0); CALCIUM 9.4 mg/dL (8.8-10.2); POTASSIUM 5.1 mmol/L (3.5-5.1); TOTAL BILIRUBIN 0.82 mg/dL (0.20-1.00); TOTAL PROTEIN 5.5 g/dL (6.3-8.3)
[2017-01-06 08:28] LABS: INR 2.65; PROTIME 28.4 Seconds (9.2-11.7)
[2017-01-06 08:42] LABS: LYMPHS 6 % (21-51); MONO 3 % (1-9)
[2017-01-06] MEDS ORDERED: MORPHINE IV PRN (08:54)
[2017-01-06 09:34] LABS: FREE T4 1.16 ng/dL (0.93-1.70)
[2017-01-06] MEDS: CLINIMIX E 4.25%-5% SOLUTION 1,000 ML IV SCH (10:33)
--- NOTE | 2017-01-06 11:30 | Diag Imaging Result Document ---
PROCEDURE NAME: CHEST-PORTABLE - 01/06/2017 PORTABLE CHEST AND ABDOMEN: COMPARISON: Comparison is made to the portable chest performed earlier. FINDINGS: Interval placement of a nasogastric tube. This overlies the esophagus and stomach. No free air beneath the diaphragm. The lung bases are clear. IMPRESSION: Nasogastric tube overlies a distended stomach.
[2017-01-06 14:58] LABS: PCO2(98.6) 96 mmHg (35-45)
[2017-01-06] MEDS ORDERED: COUMADIN PO SCH (21:00)
[2017-01-07] MEDS: DIPRIVAN 1% 100 ML IV SCH ×8 (00:04→22:52)
[2017-01-07] MEDS: CLINIMIX E 4.25%-5% SOLUTION 1,000 ML IV SCH ×2 (00:05→13:27)
[2017-01-07] MEDS: LEVAQUIN 750 MG/D5W 150 ML IV SCH (03:21)
[2017-01-07] MEDS: DUONEB (A & A) INH SCH ×6 (03:46→23:32)
[2017-01-07] MEDS: ADVAIR 250/50 DISKUS INH SCH ×3 (03:46→19:54)
[2017-01-07] MEDS: SOLU-MEDROL IV SCH ×4 (04:19→22:11)
[2017-01-07 05:00] LABS: ALLEN TEST YES; BE 10.2 mmoll (-3.0-3.0); BLOOD TYPE ARTERIAL; DRAW SITE R RADIAL; PO2(98.6) 199 mmHg (60-100); SAMPLE BLOOD; SRATE 12 BPM; TVOL 500 mL; pH(98.6) 7.45 (7.35-7.45)
[2017-01-07 05:04] LABS: PCO2(98.6) 52 mmHg (35-45)
[2017-01-07 05:05] LABS: MODALITY VENTILATOR
[2017-01-07 05:12] LABS: HEMATOCRIT 33.7 % (37.0-47.0); HEMOGLOBIN 10.6 g/dL (12.0-16.0); MCH 29.9 PG (27-31); MCHC 31.5 g/dL (33-37); MCV 94.9 FL (81-99); MPV 10.6 FL (7.4-10.4); RBC 3.55 XMIL (4.2-5.4)
[2017-01-07] MEDS: SYNTHROID IV SCH (06:11)
[2017-01-07 06:50] LABS: INR 3.55; PROTIME 38.1 Seconds (9.2-11.7)
[2017-01-07 06:57] LABS: AGAP 10; ALKALINE PHOSPHATASE 43 U/L (32-104); BUN 42 mg/dL (8-22); CALCIUM 9.5 mg/dL (8.8-10.2); CHLORIDE 95 mmol/L (98-107); COSMO 292; GOT 34 U/L (10-30); GPT 38 U/L (10-36); MAGNESIUM 2.3 mg/dL (1.5-2.7); SODIUM 135 mmol/L (136-145); TCO2 30 mmol/L (25-35); TOTAL BILIRUBIN 0.31 mg/dL (0.20-1.00); TOTAL PROTEIN 5.3 g/dL (6.3-8.3)
[2017-01-07] MEDS: LOVENOX SUBQ SCH ×2 (07:38→20:05)
--- NOTE | 2017-01-07 07:53 | Diag Imaging Result Document ---
PROCEDURE NAME: CHEST-PORTABLE - 01/07/2017 AP PORTABLE CHEST ERECT: TIME: 0510 hours. FINDINGS: The endotracheal tube tip remains approximately 2 cm above the yessenia. Overall, the appearance of the chest has not changed significantly since 01/06/2017. IMPRESSION: Stable chest.
--- NOTE | 2017-01-07 09:43 | PROGRESS NOTE ---
DATE: 01/07/2017 SUBJECTIVE: She seems to be comfortable, intubated, family at the bedside. OBJECTIVE: Vital signs: She has remained afebrile, temp 97.1, pulse 70, respirations 17, blood pressure 106/62. HEENT: Pupils are equal. Neck: CVP appears to be less than 6 cm. Lungs: Clear anterolateral. Cardiovascular: She is in paced rhythm. LAB: White count 7950, hematocrit 33, platelet count 158,000. Sodium 135, potassium 5.0, chloride 95, BUN 42, creatinine 0.8. Liver functions: Transaminases have come down, AST and ALT from 47 and 44 respectively to 34, 38. Phosphorus is 2.1. IMAGING: Chest x-ray from this morning: Stable chest. Endotracheal tube remains approximately 2 cm below yessenia. Overall appearance not changed significantly from yesterday. ASSESSMENT AND PLAN: 1. An 86-year-old female with greater than 88-[id number] history of tobacco with end-stage chronic obstructive pulmonary disease and is intubated. Try and wean as we can by Pulmonary, Dr. Henley. 2. Acute on chronic hypercapnic respiratory failure with no evidence of infiltrate or infection at this point. Still continue empiric antibiotics. 3. Chronic atrial fibrillation. She is in paced rhythm at the present time. 4. Hypothyroidism. She is euthyroid. 5. History of underlying dementia. Note the phosphorus is little bit low, potassium is at 5, creatinine is 0.8 on review of her labs. On review of her medications, she is on Clinimix 70 mL every hour, Lovenox 60 mg subcutaneously q.12 h., Synthroid 50 mcg daily, methylprednisolone 40 mg IV q.6 h., she is on propofol sedation as needed, fluticasone one puff b.i.d., Levaquin 750 mg daily. I do not see any change at this point.
[2017-01-07] MEDS: LASIX IV SCH (22:11)
[2017-01-08] MEDS: DIPRIVAN 1% 100 ML IV SCH ×5 (02:02→21:06)
[2017-01-08] MEDS: LEVAQUIN 750 MG/D5W 150 ML IV SCH (02:14)
[2017-01-08] MEDS: DUONEB (A & A) INH SCH ×6 (03:09→22:54)
[2017-01-08] MEDS: CLINIMIX E 4.25%-5% SOLUTION 1,000 ML IV SCH (03:43)
[2017-01-08 04:25] LABS: BLOOD TYPE ARTERIAL; SAMPLE BLOOD
[2017-01-08 04:26] LABS: ALLEN TEST YES; BE 13.4 mmoll (-3.0-3.0); DRAW SITE R RADIAL; METHB 1.3 % (0.0-1.5); O2(CT) 16.4 mL/dL (15.0-23.0); PO2(98.6) 127 mmHg (60-100); SAO2 98.8 % (95.0-100.0); SRATE 10 BPM; TVOL 500 mL; pH(98.6) 7.38 (7.35-7.45)
[2017-01-08] MEDS: SOLU-MEDROL IV SCH ×4 (04:26→21:07)
[2017-01-08 04:31] LABS: PCO2(98.6) 70 mmHg (35-45)
[2017-01-08 05:07] LABS: HEMATOCRIT 35.8 % (37.0-47.0); HEMOGLOBIN 11.3 g/dL (12.0-16.0); MCH 29.9 PG (27-31); MCHC 31.6 g/dL (33-37); MCV 94.7 FL (81-99); MPV 10.7 FL (7.4-10.4); RBC 3.78 XMIL (4.2-5.4)
[2017-01-08 05:20] LABS: INR 1.74; PROTIME 18.6 Seconds (9.2-11.7)
[2017-01-08 05:24] LABS: AGAP 9; ALBUMIN 2.8 g/dL (3.5-5.0); ALKALINE PHOSPHATASE 47 U/L (32-104); BUN 48 mg/dL (8-22); CALCIUM 8.6 mg/dL (8.8-10.2); CHLORIDE 92 mmol/L (98-107); COSMO 301; GOT 24 U/L (10-30); GPT 35 U/L (10-36); POTASSIUM 4.8 mmol/L (3.5-5.1); SODIUM 136 mmol/L (136-145); TCO2 35 mmol/L (25-35); TOTAL BILIRUBIN 0.25 mg/dL (0.20-1.00); TOTAL PROTEIN 5.3 g/dL (6.3-8.3)
[2017-01-08] MEDS: SYNTHROID IV SCH (06:22)
[2017-01-08] MEDS: HUMALOG SUBQ SCH ×4 (06:26→20:41)
[2017-01-08] MEDS: ADVAIR 250/50 DISKUS INH SCH ×2 (07:32→19:30)
[2017-01-08] MEDS: LOVENOX SUBQ SCH ×2 (08:32→20:40)
--- NOTE | 2017-01-08 08:49 | Diag Imaging Result Document ---
PROCEDURE NAME: CHEST-PORTABLE - 01/08/2017 PORTABLE CHEST: COMPARISON: 01/07/2017. FINDINGS: Endotracheal tube and nasogastric tube remain in place. Heart size is normal. There is transvenous cardiac pacemaker again seen. There has been interval decrease in mild atelectasis at the left base. There are calcified granuloma and residual mild subsegmental atelectasis or scarring at the left base. The remainder of the lungs appear essentially clear. There is no pleural effusion or pneumothorax seen. IMPRESSION: Decrease in subsegmental atelectasis at left base. No other acute changes.
--- NOTE | 2017-01-08 09:53 | PROGRESS NOTE ---
DATE: 01/08/2017 SUBJECTIVE: She appears comfortable, intubated. She is in sinus rhythm. Rate is 70. OBJECTIVE: Afebrile, temperature 96.7, pulse 70, respirations 12, blood pressure 109/66. HEENT: Pupils are equal and round. CVP less than 6 cm. Lungs are clear in all lung lynch. Cardiovascular: Regular rhythm and rate without murmur or S3. Abdomen is soft. Skin is warm and dry. Urine output about 3700 mL. LABORATORY DATA: White count 9430, hematocrit 35, platelet count 170,000. Electrolytes: Sodium 136, potassium 4.8, chloride 92, bicarb 35. BUN 48, creatinine 0.7, blood sugar has been 308, 401. Chest x-ray showed decreased subsegmental atelectasis at the left base. No other changes. ASSESSMENT AND PLAN: 1. End-stage chronic obstructive pulmonary disease with hypoxemia and hypercarbia. He had to be intubated and wean as able. 2. Chronic atrial fibrillation, rate controlled. He appears to be back in sinus rhythm now. 3. Hypothyroidism. She appears euthyroid. 4. Underlying dementia. 5. Getting nasogastric tube feeding. REVIEW OF ORDERS: On Lasix 30 mg IV q.12, on Clinimix at 70 mL an hour. Lovenox 60 mg subcutaneously q. 12 hours. Synthroid 50 mcg a day, Methylprednisone 40 mg IV q.6. He is on Levaquin 750 mg a day.
[2017-01-08] MEDS: LASIX IV SCH ×2 (11:00→21:07)
[2017-01-09 00:13] LABS: MODALITY VENTILATOR
[2017-01-09] MEDS: DIPRIVAN 1% 100 ML IV SCH ×5 (02:00→20:07)
[2017-01-09] MEDS ORDERED: CALAMINE LOTION TOP PRN (02:45)
[2017-01-09] MEDS: DUONEB (A & A) INH SCH ×6 (03:19→23:20)
[2017-01-09] MEDS: SOLU-MEDROL IV SCH ×4 (03:45→20:05)
[2017-01-09 05:36] LABS: HEMATOCRIT 37.2 % (37.0-47.0); MCHC 32.3 g/dL (33-37); MPV 10.5 FL (7.4-10.4)
[2017-01-09 05:49] LABS: ALLEN TEST YES; BE 20.4 mmoll (-3.0-3.0); BLOOD TYPE ARTERIAL; DRAW SITE R RADIAL; METHB 0.7 % (0.0-1.5); O2(CT) 17.3 mL/dL (15.0-23.0); PO2(98.6) 109 mmHg (60-100); SAMPLE BLOOD; SAO2 99.8 % (95.0-100.0); SRATE 12 BPM; THB 12.6 g/dL (11.5-17.4); TVOL 500 mL; pH(98.6) 7.49 (7.35-7.45)
[2017-01-09 05:50] LABS: MODALITY VENTILATOR; PCO2(98.6) 62 mmHg (35-45)
[2017-01-09] MEDS: SYNTHROID IV SCH (06:07)
[2017-01-09] MEDS: HUMALOG SUBQ SCH ×4 (06:08→20:04)
[2017-01-09 06:10] LABS: AGAP 10; ALKALINE PHOSPHATASE 51 U/L (32-104); BUN 57 mg/dL (8-22); CALCIUM 8.8 mg/dL (8.8-10.2); CHLORIDE 90 mmol/L (98-107); COSMO 301; GOT 41 U/L (10-30); GPT 42 U/L (10-36); POTASSIUM 5.3 mmol/L (3.5-5.1); SODIUM 138 mmol/L (136-145); TCO2 38 mmol/L (25-35); TOTAL BILIRUBIN 0.26 mg/dL (0.20-1.00); TOTAL PROTEIN 5.6 g/dL (6.3-8.3)
--- NOTE | 2017-01-09 06:56 | Diag Imaging Result Document ---
PROCEDURE NAME: CHEST-PORTABLE - 01/09/2017 PORTABLE CHEST: COMPARISON: 01/08/2017. FINDINGS: No change in the endotracheal tube. There is a pacemaker. A nasogastric tube overlies the esophagus and stomach. The lungs are well expanded. The heart is not enlarged. The vessels are not distended. Atelectasis versus fibrosis in the left base. There is also a granuloma in the left base. No pleural effusions identified. No consolidation. IMPRESSION: Stable chest. [facility]
[2017-01-09] MEDS: ADVAIR 250/50 DISKUS INH SCH ×2 (07:25→19:54)
[2017-01-09] MEDS: LOVENOX SUBQ SCH ×2 (08:28→20:06)
--- NOTE | 2017-01-09 09:20 | PROGRESS NOTE ---
DATE: 01/09/2017 SUBJECTIVE: An 86-year-old female with a history of COPD, congestive heart failure, hypertension, on home O2. Came to the emergency room with shortness of breath after a 4-day history of worsening shortness of breath. The family said they tried to raise her oxygen level. She ended up having to go to the unit, intubated, acute on chronic COPD and treating for pneumonia. EXAMINATION: General: Today, appears comfortable. Vital Signs: Afebrile, temperature 97.8 degrees 75, pulse, respirations 21, blood pressure 119/55. HEENT: The pupils are equal, round. CVP less than 6 cm. Lungs: Anterolateral sound clear. Cardiovascular Examination: Regular rhythm and rate without murmur or S3. Abdomen: Soft. Skin: Warm and dry. Is and Os: Urine output appears to be a little over 400 mL. ASSESSMENT AND PLAN: 1. Chest x-ray from this morning, stable chest. No change. Endotracheal tube, has a pacemaker. Nasogastric tube overlies the esophagus and stomach. The lungs are well expanded. Continue to try and wean him off of the ventilator. Continue bronchodilators. She is on albuterol, ipratropium. She is on methylprednisone 40 mg intravenous every 6. Air exchange appears to be fairly easy. 2. Continue Levaquin. I do not see any sign of infiltrate. Treating for bronchitic organisms. 3. History of hypothyroidism, on Synthroid. 4. She is on the Lovenox 60 mg every 12 hours. We will continue to try to wean off the ventilator. Continue present management. It looks like end-stage chronic obstructive pulmonary disease. I do not see any true infiltrate. She is on nasogastric feeding. She appears to be in an atrial fibrillation with rate control.
[2017-01-09] MEDS: LASIX IV SCH (09:23)
[2017-01-10] MEDS: DIPRIVAN 1% 100 ML IV SCH ×2 (01:27→05:27)
[2017-01-10] MEDS: SOLU-MEDROL IV SCH ×4 (03:11→20:14)
[2017-01-10] MEDS: DUONEB (A & A) INH SCH ×6 (03:30→23:11)
[2017-01-10 04:44] LABS: ALLEN TEST YES; BE 18.5 mmoll (-3.0-3.0); BLOOD TYPE ARTERIAL; DRAW SITE R RADIAL; METHB 1.3 % (0.0-1.5); O2(CT) 19.3 mL/dL (15.0-23.0); PCO2(98.6) 65 mmHg (35-45); PO2(98.6) 100 mmHg (60-100); SAMPLE BLOOD; SAO2 98.9 % (95.0-100.0); SRATE 8 BPM; THB 14.3 g/dL (11.5-17.4); TVOL 500 mL; pH(98.6) 7.46 (7.35-7.45)
[2017-01-10 04:45] LABS: MODALITY VENTILATOR
[2017-01-10 05:12] LABS: HEMATOCRIT 38.2 % (37.0-47.0); HEMOGLOBIN 12.2 g/dL (12.0-16.0); MCH 29.9 PG (27-31); MCHC 31.9 g/dL (33-37); MCV 93.6 FL (81-99); MPV 10.8 FL (7.4-10.4); RBC 4.08 XMIL (4.2-5.4)
[2017-01-10 05:39] LABS: AGAP 10; ALKALINE PHOSPHATASE 54 U/L (32-104); BUN 71 mg/dL (8-22); CALCIUM 8.7 mg/dL (8.8-10.2); CHLORIDE 93 mmol/L (98-107); COSMO 314; GOT 126 U/L (10-30); GPT 146 U/L (10-36); POTASSIUM 5.2 mmol/L (3.5-5.1); SODIUM 142 mmol/L (136-145); TCO2 39 mmol/L (25-35); TOTAL BILIRUBIN 0.39 mg/dL (0.20-1.00); TOTAL PROTEIN 5.6 g/dL (6.3-8.3)
[2017-01-10] MEDS: SYNTHROID IV SCH (06:24)
[2017-01-10] MEDS: HUMALOG SUBQ SCH ×4 (06:25→20:14)
--- NOTE | 2017-01-10 07:25 | Diag Imaging Result Document ---
PROCEDURE NAME: CHEST-PORTABLE - 01/10/2017 AP PORTABLE CHEST ERECT AT 0500 HOURS: FINDINGS: There is an endotracheal tube approximately 2 cm above the yessenia. There is an NG tube which passes below the diaphragm. The appearance of the chest has not changed appreciably since 01/09/2017. There is still some atelectasis or fibrosis in both lung bases which has not changed appreciably since 04/12/2016. IMPRESSION: Stable chest.
[2017-01-10] MEDS: ADVAIR 250/50 DISKUS INH SCH ×2 (07:52→19:24)
[2017-01-10] MEDS ORDERED: LASIX IV SCH (09:00)
[2017-01-10] MEDS ORDERED: LEVAQUIN 750 MG in NS 150 ML IV SCH (09:00)
[2017-01-10] MEDS: LOVENOX SUBQ SCH ×2 (09:25→20:14)
[2017-01-10] MEDS: MORPHINE IV PRN ×3 (09:37→20:23)
--- NOTE | 2017-01-10 10:30 | PROGRESS NOTE ---
DATE: 01/10/2017 SUBJECTIVE: Ms. Thompson has really not made any progress with weaning and she appears to be end- stage COPD. The family would like to extubate and allow her to . I think that is the plan for today, under Dr. Henley's direction. PHYSICAL EXAMINATION: Vital Signs: Temperature 98.5 degrees, pulse 85, respirations 18, blood pressure 122/63. Lungs: Clear in all lung lynch. Cardiovascular: Regular rhythm and rate without murmur or S3. Abdomen: Soft. Skin: Warm and dry. Intake and output: Urine output is his is 1700 mL. LAB: White count 17,290, hematocrit 38, platelet count 226,000. Electrolytes: Sodium 142, potassium 5.2, chloride 93, BUN 71, creatinine 0.8. Liver enzymes have gone up, her AST and ALT from 41 and 42 respectively to 126 and 146. Chest x-ray from this morning, stable chest. ASSESSMENT AND PLAN: End-stage chronic obstructive pulmonary disease, ventilatory dependent. Family would like to extubate and try to keep her comfortable.
[2017-01-10] MEDS: ATIVAN IV PRN (14:58)
[2017-01-11] MEDS: MORPHINE IV PRN ×5 (02:05→21:04)
[2017-01-11] MEDS: SOLU-MEDROL IV SCH ×2 (02:05→08:07)
[2017-01-11] MEDS: DUONEB (A & A) INH SCH ×6 (03:29→23:21)
[2017-01-11] MEDS: HUMALOG SUBQ SCH ×4 (06:40→22:18)
[2017-01-11] MEDS: SYNTHROID IV SCH (06:41)
[2017-01-11] MEDS: ADVAIR 250/50 DISKUS INH SCH ×2 (07:52→19:42)
[2017-01-11] MEDS: LOVENOX SUBQ SCH ×2 (08:08→21:04)
[2017-01-11] MEDS: ATIVAN IV PRN (08:39)
--- NOTE | 2017-01-11 11:02 | PROGRESS NOTE ---
DATE: 01/11/2017 Today Ms. Thompson remains relatively stable. She has 2 daughters in the room at the time of the encounter and they really did not have any complaints. OBJECTIVE: Vital signs: Blood pressure is 139/43, pulse of 72, respirations 14 , temperature 98.3 degrees. General: Ms. Thompson is an 86-year-old female. She was in bed. Not seemingly distressed. HEENT: Mucosa is slightly dry. Anicteric. Acyanotic. Neck: Supple. Chest: Good air entry bilaterally. Few faint end expiratory wheezes occasionally. Cardiovascular: Regular rate and rhythm. Abdomen: Soft, nontender. Extremities: No pedal edema. BOBBIN DRIER: Patient is slightly lethargic, but will open her eyes to verbal commands and then go back to sleep. The patient is able to move all her extremities without any issues. LABORATORY DATA: None for this morning. Glucose is 219. ASSESSMENT: 1. Acute hypercarbic respiratory failure on presentation. 2. COPD exacerbation. 3. End-stage COPD. 4. Hypertension. 5. Atrial fibrillation currently rate controlled. 6. Diabetes mellitus. 7. Transaminitis, etiology is unclear, likely due to ischemic versus drug induced. Current medications include insulin, Lovenox, morphine and Ativan p.r.n. GENERAL PLAN: Patient is currently DNR DNI. Family wants only comfort care measures only. They however want to put in some feedings so we are going to put in an NG tube, check an x-ray. Subsequently start the patient on Jevity 30 mL/h and advance it to 50. Will consult dietitian to give some recommendation with regards to the NG tube feedings. I think the long -term plan is to discharge the patient home on hospice. [facility]
--- NOTE | 2017-01-11 11:14 | Diag Imaging Result Document ---
PROCEDURE NAME: CHEST/ABD TUBE PLACEMENT - 01/11/2017 PORTABLE CHEST X-RAY: COMPARISON: 01/10/2017. FINDINGS: There is a new weighted feeding tube. The tip is probably in the duodenal bulb in good position. IMPRESSION: Feeding tube with the tip in the duodenal bulb.
--- NOTE | 2017-01-11 15:16 | PALLIATIVE CARE CONSULTATION ---
DATE: 01/11/2017 REQUESTING PHYSICIAN: Dr. Teixeira. REASON FOR CONSULTATION: Goals of care. HISTORY OF PRESENT ILLNESS: This is an 86-year-old, female with a past medical history of end-stage COPD, congestive heart failure, hypertension, hyperlipidemia, dementia, atrial fibrillation, peripheral vascular disease, and chronic hypoxemic and hypercapnic respiratory failure. She was most recently admitted on 01/04/2017 after presenting to the ED with a 4-day history of worsening shortness of breath. The daughter states that she increased her home O2 and initiated an as needed antibiotic at the first sign of symptoms however she continued to decline. At that time she was initiated on BiPAP and admitted to the medical floor. However since admission her pCO2 continued to rise and she ultimately required mechanical ventilation. On 01/08/2017 she was extubated and transitioned to comfort measures only. Currently she has been transferred out of the ICU and on to the medical floor. She is lying in the hospital bed. She is able to deny pain and states that she is somewhat short of breath. Her daughter is at the bedside. The Palliative Care team has been consulted to assist with goals of care. REVIEW OF SYSTEMS: Difficult to obtain due to the patient being drowsy. PAST MEDICAL HISTORY: See HPI. PAST SURGICAL HISTORY: 1. Pacemaker placement. 2. Bifemoral bypass. 3. Hysterectomy. SOCIAL HISTORY: Alcohol and tobacco use have been denied. Prior to this admission she lived with her daughter. FAMILY HISTORY: Positive for coronary artery disease. PHYSICAL EXAM: This is an 86-year-old, chronically ill-appearing female, who does not appear to be in any acute distress. She appears drowsy.HEENT: Atraumatic, normocephalic. She does have an NG tube to the right naris. Neck: Trachea is midline. Cardiovascular: Normal S1, S2. Pulmonary: Lung sounds are diminished. Respirations are nonlabored. Abdomen: Soft. Extremities: Pulses are palpable. IMPRESSION: This is an 86-year-old, female with a past medical history as listed above. The patient's daughter is at the bedside. She states that the plan is to discharge home with home hospice services. Disease and dying process has been discussed with the patient's daughter. Currently Ms. Thompson does not show any signs and symptoms of distress. It appears that her palliative performance scale is 20%. She is a DNR level 1. The Palliative Care team will continue to follow daily until discharge. Thank you for this consultation. Dictated by PAPI Hernandez for Zaire Henley MD
[2017-01-12] MEDS: MORPHINE IV PRN ×6 (00:21→14:53)
[2017-01-12] MEDS: DUONEB (A & A) INH SCH ×3 (03:22→11:16)
[2017-01-12] MEDS: SYNTHROID IV SCH (06:54)
[2017-01-12] MEDS: HUMALOG SUBQ SCH (06:54)
[2017-01-12] MEDS: ADVAIR 250/50 DISKUS INH SCH (07:32)
[2017-01-12 07:45] LABS: EOS# 0.01 X1000 (0.0-0.7); HEMATOCRIT 42.9 % (37.0-47.0); HEMOGLOBIN 13.1 g/dL (12.0-16.0); IMM GRAN# 1.51 X1000 (0.0-0.04); IMM GRAN% 7.3 % (0.0-0.5); LYMPH# 2.27 X1000 (1.2-3.4); MANUAL DIFF NEEDED? YES; MCH 30.3 PG (27-31); MCHC 30.5 g/dL (33-37); MCV 99.1 FL (81-99); MONO# 2.05 X1000 (0.11-0.59); MONO% 9.9 % (1.7-9.3); MPV 10.9 FL (7.4-10.4); NEUT% 70.8 % (42.2-75.2); PLT 229 X1000 (130-400); RBC 4.33 XMIL (4.2-5.4)
[2017-01-12 08:30] LABS: BANDS 1 % (0-1); LYMPHS 14 % (21-51); MONO 7 % (1-9)
[2017-01-12 09:09] LABS: AGAP 9; BUN 61 mg/dL (8-22); CALCIUM 9.3 mg/dL (8.8-10.2); CHLORIDE 103 mmol/L (98-107); COSMO 331; SODIUM 154 mmol/L (136-145); TCO2 42 mmol/L (25-35)
[2017-01-12] MEDS: LOVENOX SUBQ SCH (10:04)
--- NOTE | 2017-01-12 11:30 | PROGRESS NOTE ---
DATE: 01/12/2017 SUBJECTIVE: This morning, Ms. Thompson is a little bit more altered than yesterday. Per the nursing staff, she there are no acute changes overnight. OBJECTIVE: Vital signs: Blood pressure is 141/39, pulse of 70, respirations 16, temperature 98.5 degrees. General Examination: Ms. Thompson is an 86-year-old female. She is in bed, not in any distress. HEENT: Mucosa is pink and moist. Anicteric. Acyanotic. Neck: Supple. Chest: Air entry is bilaterally reduced. There is bilateral posterior crepitations. Cardiovascular: Regular rate and rhythm. There is some occasional extrasystolic beats. Abdomen: Soft. No hepatosplenomegaly. GRAIN ELEVATOR MOTOR STARTER: Patient is more lethargic. Will minimally open his eyes, but she does not follow any commands. LABORATORY DATA: WBC is 20.62, hemoglobin is 13.4, platelet count of 229,000. Chemistry is reviewed. Sodium is 154, glucose is 241, creatinine 0.7. ASSESSMENT: 1. Acute hypercarbic respiratory failure on presentation. Patient is status post extubation. 2. Chronic obstructive pulmonary disease exacerbation. 3. End-stage chronic obstructive pulmonary disease. 4. Hypertension, stable. 5. Atrial fibrillation, currently rate controlled. 6. Diabetes mellitus. 7. Transaminitis, etiology is unclear, likely due to ischemic versus drug induced. 8. Hypernatremia. 9. Leukocytosis, likely due to underlying aspiration pneumonia. CURRENT PLAN: The patient is currently DNR level 1 and comfort care measures. The patient has been evaluated by hospice today. Family members want to take out the NG tube and make her hospice and to be discharged home. Therefore, we are waiting for arrangement from hospice team to confirm that all the needing things for her care at home is ready and then we will get the patient discharged home today with hospice. I did speak with the daughter and the son-in-law all and another family member that was here this morning and we are all on the page of sending the patient home on hospice today.
[2017-01-12 11:46] VITALS: BP 136/35
--- NOTE | 2017-01-12 14:22 | PALLIATIVE CARE PROGRESS NOTE ---
DATE: 01/12/2017 SUBJECTIVE: Ms. Thompson appears less responsive today. She did not appear to be in any acute distress. OBJECTIVE: General: This is an 86-year-old, chronically ill-appearing, female, who is lying in the hospital bed. She does not appear to be in any acute distress. HEENT: Atraumatic, normocephalic. Cardiovascular: Regular rate and rhythm. Pulmonary: Lung sounds are diminished with crackles auscultated bilaterally. Abdomen: Soft. Extremities: Pulses are palpable. Neurologic: She appears drowsy. She will open her eyes to tactile stimulation but she does not follow any commands. ASSESSMENT AND PLAN: Currently the family is at the bedside and states the plan is to discharge home with hospice today. Ms Thompson is a DNR level 1 and is receiving comfort measures only at this time. The family did not have any questions regarding home hospice services. The palliative care team will be available as needed. Dictated by PAPI Hernandez for Zaire Henley MD
--- NOTE | 2017-01-12 16:03 | DISCHARGE SUMMARY ---
ADMISSION DATE: 01/04/2017 DISCHARGE DATE: 01/12/2017 CONSULTATIONS: 1. Dr. Zaire Henley of Pulmonology. 2. Fior Rogers with palliative care. PERTINENT PROCEDURES: Ultrasound-guided right femoral vein triple-lumen catheter placement performed by Dr. Quinn Contreras. DISCHARGE DIAGNOSES: 1. Acute hypercapnic respiratory failure on presentation status postextubation. Patient going home on hospice. 2. Chronic obstructive pulmonary disease exacerbation. Improved. Currently DNR level 1 on comfort measures. Going home on hospice. 3. End-stage chronic obstructive pulmonary disease. 4. Hypertension. Stable. 5. Atrial fibrillation. Currently rate controlled. 6. Diabetes mellitus. 7. Transaminitis etiology unclear likely due to ischemic versus drug induced. 8. Hypernatremia. 9. Leukocytosis likely due to underlying aspiration pneumonia. HOSPITAL COURSE: Briefly, Ms. Thompson is an 86-year-old female with a past medical history of COPD, congestive heart failure, hypertension on home oxygen presented to the emergency department with 4 days history of worsening shortness of breath. The family members tried to increase her oxygen at home however she was still getting more progressively short of breath. The patient was brought to the ED where she was evaluated. She was somewhat hypoxic. The patient was admitted for acute COPD exacerbation. The patient was initially admitted to the medical floor on telemetry. Started on bronchodilators as well as IV steroids with some gentle diuresis. Dr. Henley was consulted. The patient's oxygen demand an increase to BiPAP, which Dr. Henley agreed with. He wanted to do it for at least 20-24 hours to see if there was any improvement as well as IV antibiotics. He also discussed end of life issues with the family and the patient did not want any cardiopulmonary resuscitation or advanced cardiac life support as she may be difficult to wean from the vent. This was also discussed with Dr. Teixeira. However, Ms. Thompson continued to struggle on BiPAP. Her CO2 went up to above 100. The family made the decision that they wanted to intubate her. Originally they wanted a code level 2, no chest compressions but everything else done. The patient was intubated and moved to the ICU. She was placed on a Diprivan drip for sedation. The patient was extubated and moved to the floor. Family wanted comfort measures only, to consider going home on hospice. They did want an NG tube for feedings. They did speak with Palliative care. They did discuss her disease and the dying process with the daughters. She was made a DNR level 1, on comfort measures. She has been evaluated for hospice. Family members requested take out the NG tube for her to be discharged home on hospice. DISPOSITION: After those arrangements are finalized, the patient will be discharged home today with hospice. DISCHARGE INSTRUCTIONS: Discharge medications will be as per Dr. Simeon, please see MAR. FOLLOWUP: Patient is being discharged home with hospice services. DISCHARGE TIME: Greater than 30 minutes. Dictated by PAPI Brar for Shawn Mario MD
== END 2017-01-12 15:12 | disposition hospice, home (50) | DRG 207 ==
LOC: ED 20:12 → 4N 01-04 02:16 → ICU 01-06 05:33 → 3N 01-11 12:13
PROVIDERS: ATTEND Internal Medicine
PROC: 5A1955Z Respiratory Ventilation, Greater than 96 Consecutive Hours (ICD-10-PCS; principal; 2017-01-06)
PROC: 0DH67UZ Insertion of Feeding Device into Stomach, Via Natural or Artificial Opening (ICD-10-PCS; 2017-01-06)
PROC: 0BH17EZ Insertion of Endotracheal Airway into Trachea, Via Natural or Artificial Opening (ICD-10-PCS; 2017-01-06)
PROC: 3E0336Z Introduction of Nutritional Substance into Peripheral Vein, Percutaneous Approach (ICD-10-PCS; 2017-01-06)
PROC: 3E0G76Z Introduction of Nutritional Substance into Upper GI, Via Natural or Artificial Opening (ICD-10-PCS; 2017-01-06)
PROC: 06HM33Z Insertion of Infusion Device into Right Femoral Vein, Percutaneous Approach (ICD-10-PCS; 2017-01-06)
PROC: B54BZZA Ultrasonography of Right Lower Extremity Veins, Guidance (ICD-10-PCS; 2017-01-06)
DX: J44.1 Chronic obstructive pulmonary disease with (acute) exacerbation (principal); J96.21 Acute and chronic respiratory failure with hypoxia; J69.0 Pneumonitis due to inhalation of food and vomit; J96.22 Acute and chronic respiratory failure with hypercapnia; I50.32 Chronic diastolic (congestive) heart failure; E87.0 Hyperosmolality and hypernatremia; I11.0 Hypertensive heart disease with heart failure; F03.90 Unspecified dementia, unspecified severity, without behavioral disturbance, psychotic disturbance, mood disturbance, and anxiety; I48.2 Chronic atrial fibrillation; D64.9 Anemia, unspecified; E11.51 Type 2 diabetes mellitus with diabetic peripheral angiopathy without gangrene; Z66 Do not resuscitate; J44.0 Chronic obstructive pulmonary disease with (acute) lower respiratory infection; Z51.5 Encounter for palliative care; I87.8 Other specified disorders of veins; E78.5 Hyperlipidemia, unspecified; E03.9 Hypothyroidism, unspecified; R74.8 Abnormal levels of other serum enzymes; Z99.81 Dependence on supplemental oxygen; Z87.891 Personal history of nicotine dependence; Z95.0 Presence of cardiac pacemaker; Z82.49 Family history of ischemic heart disease and other diseases of the circulatory system
CPT/HCPCS: 31500; 36415; 71010; 74000; 80048; 80053; 81001; 82805; 82948; 83735; 83880; 84100; 84439; 84443; 85025; 85027; 85379; 85610; 87070; 87205; 94002; 94003; 94640; 94660; 94761; 94762; 96374; J0330; J1650; J1815; J1940; J2060; J2270; J2920; J2930; J7030